=== PATIENT | female | born 1995 | race Two or more races ===

== ENCOUNTER 2022-02-03 17:51 | Emergency (ER) | payer MEDICAID, OTHER ==
[~2022-02-03] VITALS: Ht 152.4 cm; Wt 60.0 kg
[2022-02-03 18:31] LABS: Basophils # (auto) 0 10 ^3/uL (0-0.2); Basophils % (auto) 0.3 % (0.0-2.0); Eosinophils # (auto) 0.2 10 ^3/uL (0-0.8); Eosinophils % (auto) 2.8 % (0.0-7.0); Hematocrit 37.3 % (36.0-46.0); Hemoglobin 12.3 g/dL (12.2-16.2); Lymphocytes # (auto) 1.7 10 ^3/uL (0.4-5.4); Mean Corpuscular Hemoglobin 28.6 pg (28.0-32.0); Mean Corpuscular Volume 86.5 fL (80.0-100.0); Monocytes # (auto) 0.4 10 ^3/uL (0-1.3); Monocytes % (auto) 6.2 % (0.0-12.0); Neutrophils # (auto) 3.7 10 ^3/uL (1.6-8.6); Neutrophils % (auto) 61.7 % (37.0-80.0); Nucleated Red Blood Cells % 0.1 %; Red Blood Cells 4.31 10^6/uL (4.0-5.20); Red Cell Distribution Width 13.1 % (11.8-14.3); White Blood Cell 5.9 10^3/uL (4.4-10.8)
[2022-02-03 18:49] LABS: Calcium 8.3 mg/dL (8.5-10.1); Potassium 4.4 mmol/L (3.5-5.1)
[2022-02-03 18:52] LABS: BUN/Creatinine Ratio 18.2; Bilirubin, Total 0.3 mg/dL (0.2-1.0); Total Protein 8.1 g/dL (6.4-8.2)
[2022-02-03 22:14] VITALS: BP 94/66
== END 2022-02-03 22:20 | disposition home or self-care (01) ==
LOC: ER 17:51
DX: R07.89 Other chest pain (principal)
CPT/HCPCS: 36415; 71046; 80053; 84484; 85025; 93005

== ENCOUNTER 2022-12-31 00:44 | Emergency (ER) | payer MEDICAID ==
[~2022-12-31] VITALS: Ht 154.9 cm; Wt 60.4 kg
[2022-12-31 01:02] VITALS: BP 96/63; O2SAT 97
[2022-12-31 02:12] VITALS: PULSE 91; RESP 16; TEMP 98.1
[2022-12-31] MEDS ORDERED: methylPREDNISolone SOD SUCC 40 MG/ML VL IM ONE (02:30)
[2022-12-31] MEDS ORDERED: PRED20TA2 PO (03:24)
== END 2022-12-31 03:35 | disposition home or self-care (01) ==
LOC: ER 00:44
DX: R21 Rash and other nonspecific skin eruption (principal); T78.40XA Allergy, unspecified, initial encounter; X58.XXXA Exposure to other specified factors, initial encounter
CPT/HCPCS: 96372; 99283; J2920